=== PATIENT | male | born 1970 | race Caucasian/White ===

== ENCOUNTER 2017-10-13 20:09 | Emergency (ER) | payer OTHER ==
[2017-10-13 20:15] VITALS: BP 141/86; PULSE 95; TEMP 97.8; BMI 27.8
[2017-10-13] MEDS ORDERED: KETOROLAC TROMETHAMINE 60 MG/2 ML VIAL IM ONE (20:56)
[2017-10-13] MEDS ORDERED: KETOROLAC TROMETHAMINE 60 MG/2 ML VIAL ONE (20:57)
--- NOTE | 2017-10-13 20:57 | PDOC ---
History of Present Illness - General Chief Complaint: Back Pain Stated Complaint: BACK PAIN Time Seen by Provider: 10/13/17 20:23 History Source: Patient Exam Limitations: No Limitations - History of Present Illness Initial Comments: 10/13/17 21:32 47-year-old male presents to the ED for complaints of low back pain for the past day and a half upon awakening yesterday morning. Patient states on Saturday was doing gardening lifting up buckets of dirt which she feels may have aggravated his lower back since the has frequent episodes of low back pain despite having lumbar fusion done 18 years ago. Patient states normally takes Naprosyn which does frequently relieve his pain but intimately does require Toradol injection which he needs to go to the ER for. Patient denies any saddle anesthesia, difficulty urinating, abdominal pain, weakness of the left lower extremity but states pain is reading to his left buttock sharp electric-like feeling. Severity: reports: mild Pain Location: reports: back Method of Injury: Yes: unknown Loss of Consciousness: no loss of consciousness Associated Symptoms (Fall): trouble walking Past History - Past Medical History Allergies/Adverse Reactions: Allergies Allergy/AdvReac Type Severity Reaction Status Date / Time No Known Drug Allergies Allergy Verified 01/06/15 16:03 Home Medications: Ambulatory Orders Atorvastatin Calcium [Lipitor] 5 mg PO DAILY 07/10/12 Anemia: No Asthma: No Cancer: No Cardiac Disorders: No CVA: No COPD: No CHF: No Dementia: No Diabetes: No GI Disorders: No Disorders: No HTN: No Hypercholesterolemia: Yes Liver Disease: No Seizures: No Thyroid Disease: No - Surgical History Abdominal Surgery: No Appendectomy: No Cardiac Surgery: No Cholecystectomy: No Lung Surgery: No Neurologic Surgery: Yes (CEREBRAL ANEURYSM) Orthopedic Surgery: No - Immunization History Immunization Up to Date: Yes - Suicide/Smoking/Psychosocial Hx Smoking History: Never smoked Have you smoked in the past 12 months: No Hx Alcohol Use: No Drug/Substance Use Hx: No Substance Use Type: None Hx Substance Use Treatment: No Patient Lives Alone: No Lives with/in: spouse/SO Trauma Specific PMHX - Complaint Specific PMHX Back Injury: Yes (lifting injury) Neck Injury: No Review of Systems - Review of Systems Able to Perform ROS?: Yes Constitutional: No: Symptoms Reported ABD/GI: No: Symptoms Reported : No: Symptoms Reported Musculoskeletal: Yes: Back Pain (left lower back left buttock), Muscle Pain Integumentary: No: Symptoms Reported Neurological: No: Symptoms reported *Physical Exam - Vital Signs Last Vital Signs Temp Pulse Resp BP Pulse Ox 97.8 F 95 H 18 141/86 97 10/13/17 20:13 10/13/17 20:13 10/13/17 20:13 10/13/17 20:13 10/13/17 20:13 - Physical Exam General Appearance: Yes: Nourished, Appropriately Dressed. No: Apparent Distress Gastrointestinal/Abdominal: positive: Soft. negative: Tenderness Musculoskeletal: positive: Vertebral Tenderness (no midline tenderness. lumbar paraspinous tenderness and left sciatic tenderness over gluteal sultana) Extremity: positive: Normal Capillary Refill. negative: Pedal Edema Integumentary: positive: Normal Color, Warm, Moist Neurologic: positive: Normal Mood/Affect, Motor Strength 5/5 (ambulatory) Medical Decision Making - Medical Decision Making 10/13/17 21:39 Patient with acute on chronic low back pain aggravated with heavy lifting and exertion 2 days ago. Patient states took Naprosyn 500 with no relief. Patient states responds well to Toradol. Patient ordered for injection 60 mg. Patient otherwise with no acute or new findings from previous exacerbation. Patient states has Flexeril 10 mg at home. *DC/Admit/Observation/Transfer Diagnosis at time of Disposition: Low back pain with sciatica Qualifiers: Chronicity: acute Back pain laterality: left Sciatica laterality: sciatica of left side Qualified Code(s): M54.42 - Lumbago with sciatica, left side - Discharge Dispostion Disposition: HOME - Referrals Referrals: Kael Patel MD [Primary Care Provider] - - Patient Instructions Printed Discharge Instructions: DI for Low Back Pain Additional Instructions: Please avoid movements that trigger your discomfort. Please take Motrin 600 mg every 8 hours along with Flexeril as needed. - Post Discharge Activity
== END 2017-10-13 22:37 | disposition home or self-care (01) ==
LOC: JERFT 20:09
PROC: 3E0233Z Introduction of Anti-inflammatory into Muscle, Percutaneous Approach (ICD-10-PCS; principal; 2017-10-13)
DX: M54.42 Lumbago with sciatica, left side (principal); X50.0XXA Overexertion from strenuous movement or load, initial encounter; Y93.H2 Activity, gardening and landscaping; Y92.89 Other specified places as the place of occurrence of the external cause; Y99.8 Other external cause status
CPT/HCPCS: 96372; 99281-25

== ENCOUNTER 2021-11-22 21:09 | Emergency (ER) | payer OTHER ==
[2021-11-22 21:33] VITALS: BP 117/76; PULSE 70; TEMP 98.2; BMI 31.1
[2021-11-22] MEDS ORDERED: KETOROLAC TROMETHAMINE 15 MG/ML VIAL IVPUSH ONE (22:16)
[2021-11-22] MEDS ORDERED: KETOROLAC TROMETHAMINE 30 MG/1 ML VIAL ONE (22:29)
[2021-11-22 22:52] LABS: BASO % 0.9 % (0-2.0); EOS % 7.1 % (0-4.5); HEMATOCRIT 39.1 % (35.4-49); HEMOGLOBIN 13.4 GM/dL (11.7-16.9); LYMPH % 35.1 % (8-40); MCH 29.6 pg (25.7-33.7); MCHC 34.4 g/dl (32.0-35.9); MEAN CELL VOLUME 85.9 fl (80-96); MEAN PLT VOLUME 9.5 fl (7.5-11.1); MONO % 10.1 % (3.8-10.2); NEUT % 46.8 % (42.8-82.8); PLATELET COUNT 165 10^3/uL (134-434); RBC 4.55 M/mm3 (4.00-5.60); RDW 12.9 % (11.9-15.9)
[2021-11-22 23:15] LABS: ALBUMIN 3.7 g/dl (3.4-5.0); CALCIUM 8.9 mg/dL (8.5-10.1)
[2021-11-22 23:18] LABS: CREATININE 0.7 mg/dL (0.55-1.3)
[2021-11-22 23:20] LABS: BILIRUBIN,TOTAL 0.4 mg/dL (0.2-1); TOT PROT 6.7 g/dl (6.4-8.2)
== END 2021-11-23 00:15 | disposition home or self-care (01) ==
LOC: JER 21:09
PROC: 3E0333Z Introduction of Anti-inflammatory into Peripheral Vein, Percutaneous Approach (ICD-10-PCS; principal; 2021-11-22)
DX: R07.89 Other chest pain (principal)
CPT/HCPCS: 36415; 71045-TC-FY; 80053; 84484; 85025; 93005; 93010; 99284-25